=== PATIENT | male | born 1975 ===

== ENCOUNTER → 2023-02-01 | Day surgery (SDC) | payer OTHER ==
[~2023-02-01] VITALS: Ht 182.9 cm; Wt 127.0 kg
[~2023-02-01] MED LIST: AVAPRO300 MG PO; NORVASC10 MG PO
== END | disposition home or self-care (01) ==
LOC: ADM 01-29 07:15 → CIR.AMB 07:00
PROVIDERS: ATTEND Orthopaedic Surgery
DX: S46.211A Strain of muscle, fascia and tendon of other parts of biceps, right arm, initial encounter (principal); I10 Essential (primary) hypertension; Z20.822 Contact with and (suspected) exposure to COVID-19; Z91.013 Allergy to seafood